=== PATIENT | female | born 1945 | race African-American/Black ===

== ENCOUNTER 2018-06-27 09:14 | Inpatient (IN) | payer MEDICARE ==
[2018-06-27] MEDS ORDERED: Iopamidol 370 76% 100 ML VIAL ONE (10:51)
[2018-06-27] MEDS ORDERED: Acetaminophen 325 MG TAB PO PRN (13:36)
[2018-06-27] MEDS ORDERED: Ondansetron ODT 4 MG TAB SL PRN (13:36)
[2018-06-27] MEDS ORDERED: Ondansetron PF 4 MG/2 ML Vial IVP PRN (13:36)
[2018-06-27] MEDS ORDERED: Nitroglycerin 2% Ointment 1 INCH/1 GM Packet TOP SCH (14:00)
[2018-06-27 15:34] LABS: Troponin I 0.012 ng/mL (< 0.028)
[2018-06-27] MEDS: Sodium Chloride 0.9% 1,000 ML IV SCH (15:45)
[2018-06-27 16:07] VITALS: BMI 20.2
--- NOTE | 2018-06-27 16:57 | CT ---
CT ANGIOGRAM CHEST: Date: 06-27-18 Comparison: None. History: Chest pain, worse with inspiration. Elevated D-Dimer, assess for pulmonary arterial embolism . Technique: Axial CT imaging at 2.5 mm intervals from thoracic inlet through upper abdomen with IV con trast using a CT angiogram protocol. Coronal and sagittal 3D reformatted imaging obtained. FINDINGS: No axillary, mediastinal, or hilar lymphadenopathy is appreciated. The imaged upper abdomen demonstrates nonspecific prominence of the pancreatic duct. There is ventral hypodensity involving the left lobe of the liver adjacent to the falciform ligament suggesting Focal fatty infiltration. There is no pleural, paracardial, or mediastinal fluid. There are scattered areas of subpleural cystic change involving bilateral lung apices, right greater than left. There is post-operative hardware associated with numerous ribs on the left. Scattered coronary arterial calcification is noted. There is atherosclerotic calcification of the aor tic arch in the descending thoracic aorta as well as the imaged upper abdominal aorta and its branche s. There is adequate opacification of the pulmonary arterial vasculature. There is no focal filling defe ct seen to suggest the presence of acute pulmonary arterial embolism. NO pneumothorax noted on either side. No discrete/dominant pulmonary parenchymal mass lesion or nodule noted. There is a right middle lobe calcified pulmonary granuloma on axial image 67 medially. There is linea r scar/volume loss involving the inferior and lateral aspect of the right middle lobe. There are calc ified nodes in the right hilum, evidence of prior granulomatous disease. Splenic granulomata also not ed, consistent with prior granulomatous disease. Scar/volume loss noted within the inferior and later al aspect of the left lower lobe. IMPRESSION: Numerous chronic findings as detailed above. There is no CT angiographic evidence of acute pulmonary arterial embolism. POS: [facility]
--- NOTE | 2018-06-27 17:02 | PDOC.EVN ---
Event Note - Event Note Event Note: Ms. Chung was seen today with MsBrett TaylorRm SAHNI and discussed. She was admitted due to complaints of chest pain. She describes it as a hurting across her chest. She says when she breathes in , it " made it worse". She says she may have been a little short of breath with it. She is not sure how long it lasted She is currently not in pain. She is sitting up eating, and has no complaints at this time. HEENT- PERRLA NECK- no adenaopathy, no bruits Lungs- CTA CV- RRR, no murmurs EXT- no edema Chest pain- atypical , in character, EKG reviewed, and D-Dimer was slightly elevated Agree with CTA of chest, and blood pressure control Re-evaluate in Am.
[2018-06-27] MEDS: Carvedilol 6.25 MG TAB PO SCH (17:45)
[2018-06-27 18:06] LABS: Troponin I Less than 0.010 ng/mL (< 0.028)
[2018-06-27] MEDS: Donepezil HCl 5 MG TAB PO SCH (20:57)
[2018-06-27] MEDS: cloNIDine 0.1 MG TAB PO PRN (20:57)
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
[2018-06-28] MEDS: cloNIDine 0.1 MG TAB PO PRN ×2 (04:01→17:34)
[2018-06-28 04:18] LABS: #Basophils 0.1 thou/uL (0.0-0.2); #Eosinphils 0.1 thou/uL (0.0-0.7); #Lymphocytes 1.3 thou/uL (1.20-3.40); #Monocytes 0.6 thou/uL (0.11-0.59); #Neutrophils 3.2 thou/uL (1.40-6.50); %Basophils 1.3 % (0.0-1.0); %Eosinophils 1.9 % (0.0-10.0); %Lymphocytes 24.8 % (21.0-51.0); %Monocytes 10.5 % (0.0-10.0); %Neutrophils 61.5 % (42.0-75.0); Hemoglobin 10.4 g/dL (12.0-16.0); Mean Corpuscular HGB CONC 32.6 g/dL (32.0-36.0); Mean Corpuscular Hemoglobin 30.1 pg (27.0-31.0); Mean Corpuscular Volume 92.3 fL (78.0-98.0); Platelet Count 352 thou/uL (130-400); RBC Distribution Width 13.2 % (11.5-14.5); Red Blood Cell (RBC) Count 3.45 mill/uL (4.20-5.40); White Blood Cell (WBC) Count 5.2 thou/uL (4.8-10.8)
[2018-06-28 04:41] LABS: ALT (SGPT) 7 U/L (8-55); AST (SGOT) 10 U/L (5-34); Albumin 3.4 g/dL (3.4-4.8); Alkaline Phosphatase 96 U/L (40-150); Anion Gap 9 mmol/L (10-20); BUN (Urea Nitrogen) 13 mg/dL (9.8-20.1); Bilirubin, Total 0.5 mg/dL (0.2-1.2); Calc. Creatinine Clearance 60 mL/min (70-130); Calcium 8.9 mg/dL (7.8-10.44); Carbon Dioxide 28 mmol/L (23-31); Cardiac Risk 2.5 (Less than 4.5); Chloride 108 mmol/L (98-107); Cholesterol 132 mg/dl (< 200 Desired); Estimated GFR-MDRD Greater than 90; Globulin 2.7 g/dL (2.4-3.5); Glucose 119 mg/dL (83-110); HDL Cholesterol 53 mg/dL (>60 Neg Risk); LDL Cholesterol, Calculated 68 mg/dL; Potassium 3.1 mmol/L (3.5-5.1); Protein, Total 6.1 g/dL (6.0-8.3); Sodium 142 mmol/L (136-145); Triglycerides 57 mg/dL (Less than 150)
[2018-06-28] MEDS: Sodium Chloride 0.9% 1,000 ML IV SCH ×2 (05:09→19:01)
[2018-06-28] MEDS: Glimepiride 2 MG TAB PO SCH (08:28)
[2018-06-28] MEDS: Carvedilol 6.25 MG TAB PO SCH ×3 (08:28→16:45)
[2018-06-28 08:29] LABS: Free T4 (Free Thyroxine) 1.02 ng/dL (0.70-1.48)
[2018-06-28] MEDS: Gabapentin 300 MG CAP PO SCH (12:25)
--- NOTE | 2018-06-28 14:01 | NM ---
MYOCARDIAL PERFUSION SCAN WITH SPECT IMAGING: HISTORY: Chest pain. TECHNIQUE/FINDINGS: Examination is performed using 29.5 mCi 99m-technetium sestamibi on the stress and 11 on the resting images. This shows a fairly normal distribution of radiopharmaceutical. No signs of ischemia or scar. WALL MOTION: There is symmetric contractility to the ventricle. LEFT VENTRICULAR EJECTION FRACTION: The calculated left ventricular ejection fraction is 59%. IMPRESSION: Unremarkable myocardial perfusion scan. POS: [facility]
--- NOTE | 2018-06-28 14:45 | PDOC.PN ---
- Subjective Encounter Start Date: 06/28/18 Encounter Start Time: 09:10 Subjective: examined this morning, she was getting ready to go for stress -: Denies complaints today -: Daughter is a patient on stroke, awaiting CM for placement req - Objective Vital Signs & Weight: Vital Signs (12 hours) Temp Pulse Resp BP BP Pulse Ox 06/28/18 12:21 97.4 F L 65 14 176/77 H 100 06/28/18 07:30 98.4 F 61 15 157/71 H 100 06/28/18 04:01 185/85 H 06/28/18 03:56 98.7 F 66 12 185/85 H 97 Weight Admit Weight 56.155 kg Weight 55.293 kg I&O: 06/27/18 06/28/18 06/29/18 06:59 06:59 06:59 Intake Total 1547 Balance 1547 Result Diagrams: 06/28/18 03:49 06/28/18 03:49 Additional Labs: Accuchecks 06/27/18 20:49 POC Glucose 206 H Phys Exam - Physical Examination Constitutional: NAD HEENT: PERRLA, moist MMs Neck: no nodes, no JVD Respiratory: clear to auscultation bilateral Cardiovascular: RRR, no significant murmur Gastrointestinal: soft, non-tender Musculoskeletal: no edema, pulses present Neurological: non-focal, normal sensation Lymphatic: no nodes Psychiatric: normal affect, A&O x 3 Skin: no rash, normal turgor Dx/Plan (1) Chest pain Code(s): R07.9 - CHEST PAIN, UNSPECIFIED Status: Acute (2) Hypertension Code(s): I10 - ESSENTIAL (PRIMARY) HYPERTENSION Status: Chronic (3) Dementia Code(s): F03.90 - UNSPECIFIED DEMENTIA WITHOUT BEHAVIORAL DISTURBANCE Status: Chronic (4) Chronic back pain Code(s): M54.9 - DORSALGIA, UNSPECIFIED; G89.29 - OTHER CHRONIC PAIN Status: Acute - Plan cont current plan of care, DVT proph w/lovenox -: Awaiting Echo results, Stress negative -: CM involved and looking at placement for swing bed in [place] -: Will continue to monitor, check labs * .
[2018-06-28] MEDS ORDERED: ADENOSINE 60 MG/20 ML VIAL ONE (16:02)
[2018-06-28] MEDS ORDERED: Potassium Chloride 20 MEQ TAB PO SCH (18:15)
[2018-06-28] MEDS ORDERED: Ibuprofen 200 MG TAB PO SCH (20:00)
[2018-06-28] MEDS: Lisinopril 5 MG TAB PO SCH (20:13)
[2018-06-28] MEDS: Amlodipine 10 MG TAB PO SCH (20:13)
[2018-06-28] MEDS: Donepezil HCl 5 MG TAB PO SCH (20:18)
[2018-06-29 06:53] LABS: #Eosinphils 0.2 thou/uL (0.0-0.7); #Lymphocytes 1.4 thou/uL (1.20-3.40); #Monocytes 0.5 thou/uL (0.11-0.59); #Neutrophils 3.3 thou/uL (1.40-6.50); %Basophils 0.8 % (0.0-1.0); %Eosinophils 3.3 % (0.0-10.0); %Monocytes 8.9 % (0.0-10.0); Hemoglobin 11.5 g/dL (12.0-16.0); Mean Corpuscular HGB CONC 32.9 g/dL (32.0-36.0); Mean Corpuscular Hemoglobin 30.5 pg (27.0-31.0); Mean Corpuscular Volume 92.9 fL (78.0-98.0); Mean Platelet Volume 8.1 fL (7.4-10.4); Platelet Count 319 thou/uL (130-400); RBC Distribution Width 13.2 % (11.5-14.5); Red Blood Cell (RBC) Count 3.78 mill/uL (4.20-5.40); White Blood Cell (WBC) Count 5.5 thou/uL (4.8-10.8)
[2018-06-29 07:14] LABS: ALT (SGPT) 8 U/L (8-55); AST (SGOT) 11 U/L (5-34); Albumin 3.9 g/dL (3.4-4.8); Alkaline Phosphatase 117 U/L (40-150); Anion Gap 12 mmol/L (10-20); BUN (Urea Nitrogen) 14 mg/dL (9.8-20.1); Bilirubin, Total 0.5 mg/dL (0.2-1.2); Calc. Creatinine Clearance 47 mL/min (70-130); Carbon Dioxide 26 mmol/L (23-31); Chloride 107 mmol/L (98-107); Estimated GFR-MDRD 73; Globulin 3.2 g/dL (2.4-3.5); Glucose 127 mg/dL (83-110); Potassium 3.9 mmol/L (3.5-5.1); Protein, Total 7.1 g/dL (6.0-8.3); Sodium 141 mmol/L (136-145)
[2018-06-29] MEDS: Gabapentin 300 MG CAP PO SCH (08:18)
[2018-06-29] MEDS: Potassium Chloride 20 MEQ TAB PO SCH (08:18)
[2018-06-29] MEDS: Carvedilol 6.25 MG TAB PO SCH ×2 (08:19→18:34)
[2018-06-29] MEDS: Glimepiride 2 MG TAB PO SCH (08:19)
[2018-06-29] MEDS: Acetaminophen/Codeine 30-300mg Tablet PO PRN ×3 (08:19→21:29)
[2018-06-29] MEDS: Lisinopril 5 MG TAB PO SCH ×2 (08:20→20:43)
--- NOTE | 2018-06-29 13:01 | RAD ---
LEFT KNEE RADIOGRAPHS 4 VIEWS: DATE: 06/29/2018. PROVIDED CLINICAL HISTORY: Left knee pain. FINDINGS: Tricompartmental osteophyte formation is demonstrated. Regional osteopenia. Chondrocalcinosis. No evidence for a fracture or other acute osseous abnormality. Alignment appears anatomic. Joint space s appear preserved. IMPRESSION: 1. Left knee degenerative change. 2. Chondrocalcinosis. 3. Osteopenia. POS: [facility]
--- NOTE | 2018-06-29 14:16 | PDOC.PN ---
- Subjective Encounter Start Date: 06/29/18 Encounter Start Time: 11:15 Subjective: patient seen twice this morning, initially eating her breakfast -: Patient reported to the nurse her left knee hurt after walking -: with PT. Patient re-examined. - Objective Vital Signs & Weight: Vital Signs (12 hours) Temp Pulse Resp BP BP Pulse Ox 06/29/18 11:28 97.8 F 60 16 174/66 H 99 06/29/18 08:58 74 136/63 06/29/18 08:20 67 06/29/18 07:21 98.5 F 67 20 141/66 H 99 06/29/18 05:05 69 18 167/74 H Weight Admit Weight 56.155 kg Weight 55.293 kg I&O: 06/28/18 06/29/18 06/30/18 06:59 06:59 06:59 Intake Total 1547 883 Output Total 450 Balance 1547 433 Result Diagrams: 06/29/18 06:18 06/29/18 06:18 Phys Exam - Physical Examination Constitutional: NAD HEENT: PERRLA, moist MMs Neck: no nodes, no JVD Respiratory: clear to auscultation bilateral Cardiovascular: RRR, no significant murmur Gastrointestinal: soft, non-tender mild edema noted to lateral left knee, no warmth or erythema XR left knee- no acute findings Neurological: non-focal, moves all 4 limbs Lymphatic: no nodes Psychiatric: normal affect, A&O x 3 Skin: no rash Dx/Plan (1) Chest pain Code(s): R07.9 - CHEST PAIN, UNSPECIFIED Status: Acute (2) Hypertension Code(s): I10 - ESSENTIAL (PRIMARY) HYPERTENSION Status: Chronic (3) Dementia Code(s): F03.90 - UNSPECIFIED DEMENTIA WITHOUT BEHAVIORAL DISTURBANCE Status: Chronic (4) Chronic back pain Code(s): M54.9 - DORSALGIA, UNSPECIFIED; G89.29 - OTHER CHRONIC PAIN Status: Acute (5) Left lateral knee pain Code(s): M25.562 - PAIN IN LEFT KNEE Status: Acute Plan: Xray negative for acute findings, elevation, ice, pain meds - Plan cont current plan of care, DVT proph w/lovenox -: Awaiting placement for patient, current no safe place upon d/c -: CM working on placement. -: CP work-up negative. C/o of chronic low back and left knee pain -: Will continue to monitor, await placement. * .
[2018-06-29] MEDS: Donepezil HCl 5 MG TAB PO SCH (20:43)
[2018-06-29] MEDS: Amlodipine 10 MG TAB PO SCH (20:43)
[2018-06-30 07:14] LABS: #Eosinphils 0.1 thou/uL (0.0-0.7); #Lymphocytes 1.8 thou/uL (1.20-3.40); #Monocytes 0.6 thou/uL (0.11-0.59); %Basophils 0.7 % (0.0-1.0); %Eosinophils 2.5 % (0.0-10.0); %Monocytes 10.8 % (0.0-10.0); Hemoglobin 9.8 g/dL (12.0-16.0); Mean Corpuscular Hemoglobin 29.8 pg (27.0-31.0); Mean Corpuscular Volume 93.2 fL (78.0-98.0); Mean Platelet Volume 8.2 fL (7.4-10.4); Platelet Count 276 thou/uL (130-400); RBC Distribution Width 13.4 % (11.5-14.5); Red Blood Cell (RBC) Count 3.29 mill/uL (4.20-5.40); White Blood Cell (WBC) Count 5.6 thou/uL (4.8-10.8)
[2018-06-30 07:38] LABS: ALT (SGPT) Less than 7 U/L (8-55); AST (SGOT) 10 U/L (5-34); Albumin 3.3 g/dL (3.4-4.8); Alkaline Phosphatase 88 U/L (40-150); Anion Gap 9 mmol/L (10-20); BUN (Urea Nitrogen) 21 mg/dL (9.8-20.1); Bilirubin, Total 0.5 mg/dL (0.2-1.2); Calc. Creatinine Clearance 34 mL/min (70-130); Calcium 9.5 mg/dL (7.8-10.44); Carbon Dioxide 27 mmol/L (23-31); Chloride 110 mmol/L (98-107); Estimated GFR-MDRD 51; Globulin 2.7 g/dL (2.4-3.5); Potassium 4.4 mmol/L (3.5-5.1); Sodium 142 mmol/L (136-145)
[2018-06-30 07:42] LABS: Glucose 58 mg/dL (83-110)
[2018-06-30] MEDS: Glimepiride 2 MG TAB PO SCH (08:27)
[2018-06-30] MEDS: Carvedilol 6.25 MG TAB PO SCH ×2 (08:31→16:41)
[2018-06-30] MEDS: Gabapentin 300 MG CAP PO SCH ×2 (08:31→08:32)
[2018-06-30] MEDS: Potassium Chloride 20 MEQ TAB PO SCH (08:32)
[2018-06-30] MEDS: Acetaminophen/Codeine 30-300mg Tablet PO PRN ×3 (10:07→21:04)
[2018-06-30] MEDS ORDERED: Apixaban 5 MG TAB PO SCH (13:45)
--- NOTE | 2018-06-30 15:01 | PDOC.PN ---
- Subjective Encounter Start Date: 06/30/18 Encounter Start Time: 10:45 Subjective: Examined this morning, c/o of left leg pain, worse today -: Left leg is swollen and painful to palpation -: Has been ambulating, denies other complaints. - Objective Vital Signs & Weight: Vital Signs (12 hours) Temp Pulse Resp BP Pulse Ox 06/30/18 11:42 99.1 F 69 20 106/53 L 98 06/30/18 07:19 98.8 F 70 16 99/51 L 96 Weight Admit Weight 56.155 kg Weight 55.293 kg I&O: 06/29/18 06/30/18 07/01/18 06:59 06:59 06:59 Intake Total 883 720 Output Total 450 Balance 433 720 Result Diagrams: 06/30/18 06:31 06/30/18 06:31 Additional Labs: Accuchecks 06/30/18 13:30 POC Glucose 184 H Phys Exam - Physical Examination Constitutional: NAD HEENT: PERRLA, moist MMs Neck: no nodes, no JVD Respiratory: no wheezing, no rales, clear to auscultation bilateral Cardiovascular: RRR, no significant murmur Gastrointestinal: soft, non-tender Musculoskeletal: edema present Today, left leg is swollen, tender on palpation, warm to posterior aspect Neurological: non-focal, normal sensation, moves all 4 limbs Lymphatic: no nodes Psychiatric: normal affect, A&O x 3 Deviation from normal: left leg with edema, erythema Dx/Plan (1) Chest pain Code(s): R07.9 - CHEST PAIN, UNSPECIFIED Status: Acute (2) Hypertension Code(s): I10 - ESSENTIAL (PRIMARY) HYPERTENSION Status: Chronic (3) Dementia Code(s): F03.90 - UNSPECIFIED DEMENTIA WITHOUT BEHAVIORAL DISTURBANCE Status: Chronic (4) Chronic back pain Code(s): M54.9 - DORSALGIA, UNSPECIFIED; G89.29 - OTHER CHRONIC PAIN Status: Acute (5) Left lateral knee pain Code(s): M25.562 - PAIN IN LEFT KNEE Status: Acute (6) DVT of axillary vein, acute left Code(s): I82.A12 - ACUTE EMBOLISM AND THROMBOSIS OF LEFT AXILLARY VEIN Status : Acute - Plan cont current plan of care, DVT proph w/SCDs Patient with swollen left leg today, much worse than yesterday -: U/S ordered, +DVT, Eliquis has been started. -: Cardiac work-up neg, awaiting placement * .
--- NOTE | 2018-06-30 15:16 | ULT ---
LEFT LOWER EXTREMITY VENOUS DOPPLER: DATE: 06/30/2018. PROVIDED CLINICAL HISTORY: Left leg pain and edema. FINDINGS: Blackwood scale and color Doppler sonography is performed of the left common femoral, femoral, popliteal, posterior tibial, greater saphenous, and profunda femoral veins. There is luminal echogenicity and n oncompressibility noted involving the left common femoral, femoral, and popliteal veins with lack of flow in these regions. There is partial noncompressibility seen involving the left popliteal vein. IMPRESSION: Extensive occlusive deep venous thrombosis of the left lower extremity as above. Findings are communicated to the charge nurse by the radio division officer upon completion of the study. CODE CR POS: [facility]
[2018-06-30] MEDS: Sodium Chloride 0.9% 1,000 ML IV SCH (15:40)
[2018-06-30] MEDS ORDERED: Enoxaparin Sodium 40 MG/0.4 ML SYRINGE SC SCH (21:00)
[2018-06-30] MEDS: Apixaban 5 MG TAB PO SCH (21:05)
[2018-06-30] MEDS: Amlodipine 10 MG TAB PO SCH (21:06)
[2018-06-30] MEDS: Donepezil HCl 5 MG TAB PO SCH (21:06)
[2018-07-01] MEDS: Acetaminophen/Codeine 30-300mg Tablet PO PRN ×4 (02:34→20:51)
[2018-07-01] MEDS: Sodium Chloride 0.9% 1,000 ML IV SCH ×3 (04:46→22:16)
[2018-07-01] MEDS: Apixaban 5 MG TAB PO SCH ×2 (08:21→20:50)
[2018-07-01] MEDS: Lisinopril 5 MG TAB PO SCH (08:21)
[2018-07-01] MEDS: Carvedilol 6.25 MG TAB PO SCH ×2 (08:22→16:44)
[2018-07-01] MEDS: Glimepiride 2 MG TAB PO SCH (08:22)
[2018-07-01] MEDS: Gabapentin 300 MG CAP PO SCH (08:32)
--- NOTE | 2018-07-01 15:01 | PDOC.PN ---
- Subjective Encounter Start Date: 07/01/18 Encounter Start Time: 14:58 Patient currently no complaints, denies chest pain, shortness of breath. No events over night. Await bed availability for SNF. - Objective MAR Reviewed: Yes Vital Signs & Weight: Vital Signs (12 hours) Temp Pulse Resp BP Pulse Ox 07/01/18 11:42 99.3 F 67 16 122/58 L 97 07/01/18 08:21 66 07/01/18 07:28 98.5 F 66 15 118/56 L 95 Weight Admit Weight 123 lb 12.8 oz Weight 121 lb 14.4 oz I&O: 06/30/18 07/01/18 07/02/18 06:59 06:59 06:59 Intake Total 960 164 6095 Output Total 200 Balance 760 384 8428 Result Diagrams: 06/30/18 06:31 06/30/18 06:31 Additional Labs: Accuchecks 07/01/18 07/01/18 06/30/18 10:07 06:15 20:36 POC Glucose 204 H 96 208 H 06/30/18 16:34 POC Glucose 172 H Radiology Reviewed by me: Yes EKG Reviewed by me: Yes Phys Exam - Physical Examination Constitutional: NAD HEENT: PERRLA, moist MMs, oral pharynx no lesions Neck: no nodes, no JVD, supple Respiratory: no wheezing, no rales, no rhonchi Cardiovascular: RRR, no significant murmur, no rub Gastrointestinal: soft, non-tender, no distention, positive bowel sounds Musculoskeletal: no edema, pulses present Neurological: non-focal, normal sensation, moves all 4 limbs Lymphatic: no nodes Psychiatric: normal affect, A&O x 3 Skin: no rash, normal turgor, cap refill <2 seconds Dx/Plan - Plan cont current plan of care * Continue current medical management * Continue eliquis for DVT tx * PT/OT * Await offer for SNF placement, likely discharged once bed available
[2018-07-01] MEDS ORDERED: Sodium Chloride 0.9% 10 ML ONE (19:39)
[2018-07-01] MEDS: Amlodipine 10 MG TAB PO SCH (20:50)
[2018-07-01] MEDS: Donepezil HCl 5 MG TAB PO SCH (20:50)
[2018-07-02] MEDS: Acetaminophen/Codeine 30-300mg Tablet PO PRN ×3 (03:30→17:26)
[2018-07-02] MEDS: Carvedilol 6.25 MG TAB PO SCH ×2 (08:56→17:25)
[2018-07-02] MEDS: Apixaban 5 MG TAB PO SCH ×2 (08:56→21:02)
[2018-07-02] MEDS: Glimepiride 2 MG TAB PO SCH (08:56)
[2018-07-02] MEDS: Gabapentin 300 MG CAP PO SCH (08:56)
[2018-07-02] MEDS: Lisinopril 5 MG TAB PO SCH (08:57)
[2018-07-02] MEDS: Sodium Chloride 0.9% 1,000 ML IV SCH ×2 (09:42→11:16)
[2018-07-02] MEDS ORDERED: Insulin Regular 300 UNITS/3 ML VIAL SC PRN ×2 (16:06)
[2018-07-02] MEDS ORDERED: Dextrose 50% Abboject 50 ML SYRINGE SLOW IVP PRN (16:06)
[2018-07-02] MEDS ORDERED: Dextrose 5% in Water 1,000 ML IV PRN (16:06)
--- NOTE | 2018-07-02 18:08 | PDOC.PN ---
- Subjective Encounter Start Date: 07/02/18 Encounter Start Time: 18:07 Patient lying in bed, no events over night. Awaiting placement for SNF. Discussed with case mgr, patient meets inpatient criteria. She denies chest pain, shortness of breath. Continuing on Eliquis. - Objective MAR Reviewed: Yes Vital Signs & Weight: Vital Signs (12 hours) Temp Pulse Pulse Resp BP BP BP 07/02/18 17:25 149/67 H 07/02/18 15:50 98.9 F 73 18 149/67 H 07/02/18 14:34 70 170/80 H 07/02/18 14:10 07/02/18 11:15 98.6 F 68 18 151/69 H 07/02/18 08:57 66 136/61 07/02/18 08:56 136/61 07/02/18 07:27 98.8 F 66 16 136/61 Pulse Ox 07/02/18 17:25 07/02/18 15:50 100 07/02/18 14:34 07/02/18 14:10 98 07/02/18 11:15 99 07/02/18 08:57 07/02/18 08:56 07/02/18 07:27 98 Weight Admit Weight 123 lb 12.8 oz Weight 121 lb 14.4 oz I&O: 07/01/18 07/02/18 07/03/18 06:59 06:59 06:59 Intake Total 450 2608 2100 Output Total 200 400 Balance 250 2208 2100 Result Diagrams: 06/30/18 06:31 06/30/18 06:31 Additional Labs: Accuchecks 07/02/18 07/02/18 07/02/18 16:50 10:08 05:27 POC Glucose 193 H 215 H 150 H 07/01/18 20:38 POC Glucose 238 H Radiology Reviewed by me: Yes <Mendez Vigil - Last Filed: 07/02/18 18:07> - Objective Vital Signs & Weight: Vital Signs (12 hours) Temp Pulse Pulse Resp BP BP BP 07/02/18 17:25 149/67 H 07/02/18 15:50 98.9 F 73 18 149/67 H 07/02/18 14:34 70 170/80 H 07/02/18 14:10 07/02/18 11:15 98.6 F 68 18 151/69 H 07/02/18 08:57 66 136/61 07/02/18 08:56 136/61 07/02/18 07:27 98.8 F 66 16 136/61 Pulse Ox 07/02/18 17:25 07/02/18 15:50 100 07/02/18 14:34 07/02/18 14:10 98 07/02/18 11:15 99 07/02/18 08:57 07/02/18 08:56 07/02/18 07:27 98 Weight Admit Weight 123 lb 12.8 oz Weight 121 lb 14.4 oz I&O: 07/01/18 07/02/18 07/03/18 06:59 06:59 06:59 Intake Total 450 2608 2100 Output Total 200 400 Balance 250 2208 2100 Result Diagrams: 06/30/18 06:31 06/30/18 06:31 Additional Labs: Accuchecks 07/02/18 07/02/18 07/02/18 16:50 10:08 05:27 POC Glucose 193 H 215 H 150 H 07/01/18 20:38 POC Glucose 238 H <Brandon Barlow - Last Filed: 07/02/18 19:08> Phys Exam - Physical Examination Constitutional: NAD HEENT: PERRLA, moist MMs, oral pharynx no lesions Neck: no nodes, no JVD, supple, full ROM Respiratory: no wheezing, no rales, no rhonchi, clear to auscultation bilateral Cardiovascular: RRR, no significant murmur, no rub Gastrointestinal: soft, non-tender, no distention, positive bowel sounds Musculoskeletal: no edema, pulses present Neurological: non-focal, normal sensation, moves all 4 limbs Lymphatic: no nodes Psychiatric: normal affect, A&O x 3 Skin: no rash, normal turgor, cap refill <2 seconds <Mendez Vigil - Last Filed: 07/02/18 18:07> Dx/Plan (1) Chest pain Code(s): R07.9 - CHEST PAIN, UNSPECIFIED Status: Acute (2) Left lateral knee pain Code(s): M25.562 - PAIN IN LEFT KNEE Status: Acute (3) Dementia Code(s): F03.90 - UNSPECIFIED DEMENTIA WITHOUT BEHAVIORAL DISTURBANCE Status: Chronic (4) Hypertension Code(s): I10 - ESSENTIAL (PRIMARY) HYPERTENSION Status: Chronic (5) DVT (deep venous thrombosis) Code(s): I82.409 - ACUTE EMBOLISM AND THOMBOS UNSP DEEP VN UNSP LOWER EXTREMITY Status: Acute - Plan cont current plan of care, PT/OT * Continue Eliquis for anticoagulation, monitor signs of bleeding and monitor H& H * discussed with case mgr, await placement * Continue current medical management * Monitor labs and vs <Mendez Vigil - Last Filed: 07/02/18 18:07> - Plan Patient seen and examined. No new complaints. Agree with the above assessment and plan. Patient understands the risk of anticoagulation. <Brandon Barlow - Last Filed: 07/02/18 19:08>
[2018-07-02] MEDS: Donepezil HCl 5 MG TAB PO SCH (21:01)
[2018-07-02] MEDS: Amlodipine 10 MG TAB PO SCH (21:01)
[2018-07-03 06:01] LABS: #Basophils 0.1 thou/uL (0.0-0.2); #Eosinphils 0.3 thou/uL (0.0-0.7); #Lymphocytes 1.7 thou/uL (1.20-3.40); #Monocytes 0.5 thou/uL (0.11-0.59); #Neutrophils 2.8 thou/uL (1.40-6.50); %Basophils 1.4 % (0.0-1.0); %Eosinophils 4.9 % (0.0-10.0); %Lymphocytes 31.2 % (21.0-51.0); %Monocytes 9.3 % (0.0-10.0); %Neutrophils 53.2 % (42.0-75.0); Hemoglobin 9.5 g/dL (12.0-16.0); Mean Corpuscular Hemoglobin 29.5 pg (27.0-31.0); Mean Corpuscular Volume 92.2 fL (78.0-98.0); Mean Platelet Volume 8.1 fL (7.4-10.4); Platelet Count 296 thou/uL (130-400); RBC Distribution Width 12.7 % (11.5-14.5); White Blood Cell (WBC) Count 5.3 thou/uL (4.8-10.8)
[2018-07-03 06:11] LABS: Anion Gap 10 mmol/L (10-20); BUN (Urea Nitrogen) 12 mg/dL (9.8-20.1); Calc. Creatinine Clearance 62 mL/min (70-130); Calcium 9.5 mg/dL (7.8-10.44); Carbon Dioxide 24 mmol/L (23-31); Chloride 106 mmol/L (98-107); Estimated GFR-MDRD Greater than 90; Glucose 107 mg/dL (83-110); Magnesium 1.5 mg/dL (1.6-2.6); Potassium 4.2 mmol/L (3.5-5.1); Sodium 136 mmol/L (136-145)
[2018-07-03] MEDS: Apixaban 5 MG TAB PO SCH ×2 (08:24→20:21)
[2018-07-03] MEDS: Carvedilol 6.25 MG TAB PO SCH ×2 (08:24→16:31)
[2018-07-03] MEDS: Lisinopril 5 MG TAB PO SCH (08:25)
[2018-07-03] MEDS: Glimepiride 2 MG TAB PO SCH (08:25)
[2018-07-03] MEDS: Gabapentin 300 MG CAP PO SCH (08:25)
[2018-07-03] MEDS: Acetaminophen/Codeine 30-300mg Tablet PO PRN ×3 (08:25→20:21)
[2018-07-03] MEDS: Docusate 100 MG CAP PO SCH ×2 (10:02→20:21)
[2018-07-03] MEDS: Sodium Chloride 0.9% 1,000 ML IV SCH ×2 (13:39→16:39)
--- NOTE | 2018-07-03 15:51 | PDOC.PN ---
- Subjective Encounter Start Date: 07/03/18 Encounter Start Time: 15:48 Patient lying in bed, no events over night. Awaiting swing bed. She remains on eliquis and tolerating well, no signs of bleeding. No chest pain or shortness of breath. Mg low at 1.5. - Objective MAR Reviewed: Yes Vital Signs & Weight: Vital Signs (12 hours) Temp Pulse Pulse Pulse Resp BP BP 07/03/18 14:12 71 70 161/70 H 07/03/18 10:56 98.1 F 66 20 07/03/18 08:25 64 137/63 07/03/18 08:24 137/63 07/03/18 07:34 99.1 F 64 16 07/03/18 04:00 98.4 F 68 20 BP BP Pulse Ox Pulse Ox 07/03/18 14:12 137/68 99 07/03/18 10:56 134/63 98 07/03/18 08:25 07/03/18 08:24 07/03/18 07:34 137/63 97 07/03/18 04:00 124/58 L 93 L Weight Admit Weight 123 lb 12.8 oz Weight 121 lb 14.4 oz I&O: 07/02/18 07/03/18 07/04/18 06:59 06:59 06:59 Intake Total 2608 2100 Output Total 400 Balance 2208 2100 Result Diagrams: 07/03/18 05:42 07/03/18 05:42 Additional Labs: Accuchecks 07/03/18 07/02/18 07/02/18 10:59 20:12 16:50 POC Glucose 183 H 246 H 193 H Radiology Reviewed by me: Yes Phys Exam - Physical Examination Constitutional: NAD HEENT: PERRLA, moist MMs, oral pharynx no lesions Neck: no nodes, no JVD, supple Respiratory: no wheezing, no rales, no rhonchi, clear to auscultation bilateral Cardiovascular: RRR, no significant murmur, no rub Gastrointestinal: soft, non-tender, no distention, positive bowel sounds Musculoskeletal: no edema, pulses present Mild tenderness in LLE Neurological: non-focal, normal sensation, moves all 4 limbs Lymphatic: no nodes Psychiatric: normal affect, A&O x 3 Skin: no rash, normal turgor, cap refill <2 seconds Dx/Plan (1) Chest pain Code(s): R07.9 - CHEST PAIN, UNSPECIFIED Status: Acute (2) Left lateral knee pain Code(s): M25.562 - PAIN IN LEFT KNEE Status: Acute (3) Dementia Code(s): F03.90 - UNSPECIFIED DEMENTIA WITHOUT BEHAVIORAL DISTURBANCE Status: Chronic (4) Hypertension Code(s): I10 - ESSENTIAL (PRIMARY) HYPERTENSION Status: Chronic (5) DVT (deep venous thrombosis) Code(s): I82.409 - ACUTE EMBOLISM AND THOMBOS UNSP DEEP VN UNSP LOWER EXTREMITY Status: Acute (6) Hypomagnesemia Code(s): E83.42 - HYPOMAGNESEMIA Status: Acute - Plan cont current plan of care, PT/OT * Continue Eliquis, monitor H&H and signs of bleeding. * Await approval for swing bed * Mag 1.5 will replace today * Continue current medical management
[2018-07-03] MEDS: Amlodipine 10 MG TAB PO SCH (20:20)
[2018-07-03] MEDS: Donepezil HCl 5 MG TAB PO SCH (20:21)
[2018-07-04] MEDS: Acetaminophen/Codeine 30-300mg Tablet PO PRN ×4 (00:41→19:21)
[2018-07-04] MEDS: Carvedilol 6.25 MG TAB PO SCH ×2 (08:35→16:45)
[2018-07-04] MEDS: Glimepiride 2 MG TAB PO SCH (08:36)
[2018-07-04] MEDS: Lisinopril 5 MG TAB PO SCH (08:36)
[2018-07-04] MEDS: Apixaban 5 MG TAB PO SCH ×2 (08:36→21:29)
[2018-07-04] MEDS: Gabapentin 300 MG CAP PO SCH (08:36)
[2018-07-04] MEDS: Docusate 100 MG CAP PO SCH ×2 (08:36→21:29)
--- NOTE | 2018-07-04 15:14 | PDOC.PN ---
- Subjective Encounter Start Date: 07/04/18 Encounter Start Time: 15:12 Patient lying in bed, she reports doing well with no events over night. She reports some tenderness in left lower extremity but denies chest pain, shortness of breath or abdominal pain. Await approval for swing bed to SNF. - Objective MAR Reviewed: Yes Vital Signs & Weight: Vital Signs (12 hours) Temp Pulse Resp BP BP Pulse Ox 07/04/18 11:52 97.8 F 55 L 16 140/63 99 07/04/18 08:35 98 07/04/18 07:30 98.5 F 65 16 132/61 98 07/04/18 04:00 62 18 125/60 98 Weight Admit Weight 123 lb 12.8 oz Weight 122 lb 1.6 oz I&O: 07/03/18 07/04/18 07/05/18 06:59 06:59 06:59 Intake Total 2100 600 Output Total 600 Balance 2100 0 Result Diagrams: 07/03/18 05:42 07/03/18 05:42 Additional Labs: Accuchecks 07/04/18 07/03/18 05:33 22:13 POC Glucose 147 H 201 H Radiology Reviewed by me: Yes Phys Exam - Physical Examination Constitutional: NAD HEENT: PERRLA, moist MMs, sclera anicteric, 2+ tonsils Neck: no nodes Respiratory: no wheezing, no rales, no rhonchi, clear to auscultation bilateral Cardiovascular: RRR, no significant murmur, no rub Gastrointestinal: soft, non-tender, no distention, positive bowel sounds Musculoskeletal: pulses present 2+ nonpitting edema LLE Neurological: non-focal, normal sensation, moves all 4 limbs Lymphatic: no nodes Psychiatric: normal affect, A&O x 3 Skin: no rash, normal turgor, cap refill <2 seconds Dx/Plan (1) Chest pain Code(s): R07.9 - CHEST PAIN, UNSPECIFIED Status: Resolved (2) Left lateral knee pain Code(s): M25.562 - PAIN IN LEFT KNEE Status: Acute (3) Dementia Code(s): F03.90 - UNSPECIFIED DEMENTIA WITHOUT BEHAVIORAL DISTURBANCE Status: Chronic (4) Hypertension Code(s): I10 - ESSENTIAL (PRIMARY) HYPERTENSION Status: Chronic (5) DVT (deep venous thrombosis) Code(s): I82.409 - ACUTE EMBOLISM AND THOMBOS UNSP DEEP VN UNSP LOWER EXTREMITY Status: Acute (6) Hypomagnesemia Code(s): E83.42 - HYPOMAGNESEMIA Status: Acute - Plan cont current plan of care, PT/OT * Continue eliquis, and other medical management * Recheck mag level, she received replacement yesterday * Monitor vitals, labs and patient progress * Await discharge to SNF
[2018-07-04] MEDS: Sodium Chloride 0.9% 1,000 ML IV SCH (15:31)
--- NOTE | 2018-07-04 15:38 | PDOC.EVN ---
Event Note - Event Note Event Note: case management discussed with Francisco TAFOYA. agree with management
[2018-07-04] MEDS: Amlodipine 10 MG TAB PO SCH (21:29)
[2018-07-04] MEDS: Donepezil HCl 5 MG TAB PO SCH (21:29)
[2018-07-04] MEDS ORDERED: Morphine 4 MG/ML VIAL IV SCH (22:00)
[2018-07-05] MEDS: Acetaminophen/Codeine 30-300mg Tablet PO PRN ×2 (01:29→08:39)
[2018-07-05 05:22] LABS: #Basophils 0.1 thou/uL (0.0-0.2); #Eosinphils 0.2 thou/uL (0.0-0.7); #Lymphocytes 1.7 thou/uL (1.20-3.40); #Monocytes 0.4 thou/uL (0.11-0.59); #Neutrophils 2.3 thou/uL (1.40-6.50); %Basophils 1.8 % (0.0-1.0); %Eosinophils 4.4 % (0.0-10.0); %Lymphocytes 36.9 % (21.0-51.0); %Monocytes 8.9 % (0.0-10.0); %Neutrophils 48.1 % (42.0-75.0); Hemoglobin 9.6 g/dL (12.0-16.0); Mean Corpuscular HGB CONC 32.1 g/dL (32.0-36.0); Mean Corpuscular Hemoglobin 29.7 pg (27.0-31.0); Mean Corpuscular Volume 92.4 fL (78.0-98.0); Platelet Count 366 thou/uL (130-400); RBC Distribution Width 12.5 % (11.5-14.5); Red Blood Cell (RBC) Count 3.24 mill/uL (4.20-5.40); White Blood Cell (WBC) Count 4.7 thou/uL (4.8-10.8)
[2018-07-05 05:38] LABS: Anion Gap 11 mmol/L (10-20); BUN (Urea Nitrogen) 10 mg/dL (9.8-20.1); Calc. Creatinine Clearance 59 mL/min (70-130); Calcium 9.6 mg/dL (7.8-10.44); Carbon Dioxide 29 mmol/L (23-31); Chloride 103 mmol/L (98-107); Estimated GFR-MDRD Greater than 90; Glucose 102 mg/dL (83-110); Potassium 3.9 mmol/L (3.5-5.1); Sodium 139 mmol/L (136-145)
[2018-07-05 07:59] VITALS: TEMP 98
[2018-07-05] MEDS: Lisinopril 5 MG TAB PO SCH (08:38)
[2018-07-05] MEDS: Apixaban 5 MG TAB PO SCH (08:38)
[2018-07-05] MEDS: Gabapentin 300 MG CAP PO SCH (08:38)
[2018-07-05] MEDS: Docusate 100 MG CAP PO SCH (08:38)
[2018-07-05] MEDS: Carvedilol 6.25 MG TAB PO SCH (08:39)
[2018-07-05] MEDS: Glimepiride 2 MG TAB PO SCH (08:39)
[2018-07-05 12:52] VITALS: BP 146/65
--- NOTE | 2018-07-05 15:01 | DIS ---
DATE OF ADMISSION: 06/27/2018 DATE OF DISCHARGE: 07/05/2018 CHIEF COMPLAINT: Chest pain. DISCHARGE DIAGNOSES: 1. Left lower extremity deep venous thrombosis. 2. Type 2 diabetes mellitus. 3. Hypertension. 4. Dementia. CONSULTATIONS: None. HOSPITAL COURSE: Ms. Chung is a 73-year-old woman, who presented with chest pain radiating to the back. Initial laboratory studies done showed an elevated D-dimer. She has a known history of DVT and admitted for further investigation. She underwent CT angiogram that showed no evidence of PE. She also underwent cardiac studies including stress test and echocardiogram both were unremarkable. She developed left leg pain and swelling. Doppler ultrasound was requested and positive for DVT. She was therefore initiated on Eliquis. The patient has had improvement lower leg swelling and pain. During her hospitalization, she did have a drop in her magnesium to 1.5 on 07/03/2018. Magnesium was replaced and on day of discharge, her magnesium was normal at 1.6. She has no complaints today. [facility] to pending approval for swing bed, which was obtained today. The patient said she is feeling well and eager for discharge. She has been eating without any complaints of nausea or vomiting. Denies any issues with her appetite. Does not have any abdominal pain or cramping. Reports no bowel changes or urinary symptoms. Denies any further episodes of chest pain. She does not have any shortness of breath. No cough or hemoptysis. No palpitations. No further issues with lower leg pain or swelling. Denies any headaches or dizziness. She is feeling well and herself and no other complaints. Denies any fever, chills, or night sweats. REVIEW OF SYSTEMS: All other review of systems were negative. PHYSICAL EXAMINATION: VITALS: Stable. GENERAL: She appears well and in no acute distress. HEENT: Normocephalic and atraumatic. Pupils are equal, round, and reactive to light. Sclerae are without icterus. Oropharynx is clear. NECK: Full ROM. Supple without lymphadenopathy. HEART: Sounds are normal. LUNGS: Clear to auscultation bilaterally. ABDOMEN: Soft, nontender, nondistended. No guarding. Bowel sounds present. EXTREMITIES: No clubbing, cyanosis, or edema. NEUROLOGIC: The patient is alert. Pleasantly demented. Able to answer questions. DISCHARGE MEDICATIONS: 1. Amlodipine 10 mg p.o. at bedtime. 2. Gabapentin 300 mg p.o. daily. 3. Glimepiride 2 mg p.o. daily. 4. Pantoprazole 40 mg p.o. twice daily. 5. Seroquel 25 mg p.o. at bedtime. 6. Dicyclomine 20 mg p.o. q.i.d. 7. Naproxen 500 mg p.o. b.i.d. 8. Docusate 100 p.o. b.i.d. 9. Donepezil 5 mg p.o. at bedtime. 10. Zestril 5 mg p.o. daily. NEW MEDICATIONS: 1. Eliquis 10 mg p.o. b.i.d. until July 06, 2018. This is then reduced to 5 mg p.o. twice daily beginning July 07, 2018. DISCHARGE CONDITION: Stable. DISCHARGE ACTIVITY: As tolerated. DISCHARGE DIET: Diabetic diet. FOLLOWUP: The patient is to be seen by her primary care physician within 1 to 2 weeks. DISPOSITION: Home today, July 05, 2018. The patient was discussed and seen by Dr. Tang who is in agreement with plan of care as described above. Job ID: [id number] Pt seen and examined in conjunction with Iesha Ruby PA-C on the day of service. I have seen and evaluated the patient and reviewed all documentations. I agree with the findings and plan as outlined in his note and participated in Medical decision-making. Joe Tang M.D. SY
== END 2018-07-05 15:31 | DRG 301 ==
LOC: OBSVTOIN 12:23 → 2SW 12:23 → 2NO 07-03 14:05
PROVIDERS: ADMIT Internal Medicine; ATTEND Internal Medicine
PROC: B24BZZZ Ultrasonography of Heart with Aorta (ICD-10-PCS; principal; 2018-06-28)
DX: I82.A12 Acute embolism and thrombosis of left axillary vein (principal); I82.412 Acute embolism and thrombosis of left femoral vein; G30.9 Alzheimer's disease, unspecified; F02.80 Dementia in other diseases classified elsewhere, unspecified severity, without behavioral disturbance, psychotic disturbance, mood disturbance, and anxiety; I10 Essential (primary) hypertension; E11.9 Type 2 diabetes mellitus without complications; Z86.718 Personal history of other venous thrombosis and embolism; Z79.01 Long term (current) use of anticoagulants; R07.9 Chest pain, unspecified; M54.9 Dorsalgia, unspecified; E83.42 Hypomagnesemia; Z79.84 Long term (current) use of oral hypoglycemic drugs; Z95.828 Presence of other vascular implants and grafts
CPT/HCPCS: 36415; 36416; 71275; 78452; 80048; 80053; 80061; 83735; 84439; 84443; 84481; 85025; 90471; 90662; 93017; 93306; A9500; G0008; G8978-GP-CJ; G8979-GP-CI; G8987-GO-CJ; G8988-GO-CI; J0153; J2270; J3475; J7050